=== PATIENT | female | born 1940 | race Two or more races ===

== ENCOUNTER 2025-02-08 09:23 | Inpatient (IN) | payer OTHER ==
[~2025-02-08] VITALS: Ht 152.4 cm; Wt 59.0 kg
--- NOTE | 2025-02-08 09:35 | NUR ---
SE RECIBE PTE ALERTA, ORIENTADA EN PERSONA EN AMBULANCIA. FAMILIAR REFIERE QUE VIENE DE TRANSFER DE A[place]IO M[place] POR DISLOCACION EN CADERA DERECHA. SE MIDE SV Y SE UBICA
[2025-02-08] MEDS ORDERED: CHILDREN'S ASPI81 MG (09:36)
[2025-02-08] MEDS ORDERED: AMLODIPINE-OLM1 EAC2 (09:37)
[2025-02-08] MEDS ORDERED: METFORMIN HCL500 M3 (09:37)
[2025-02-08] MEDS ORDERED: TOPROL XL25 M1 (09:37)
[2025-02-08] MEDS ORDERED: LEVOTHYROXINE50 MC1 (09:37)
[2025-02-08] MEDS ORDERED: ARBLI10 MG/1 ML (09:37)
[2025-02-08] MEDS ORDERED: 0.9 % SODIUM CHLORIDE 1,000 ML IV SCH ×2 (09:45→18:15)
[2025-02-08] MEDS ORDERED: KETOROLAC TROMETHAMINE 30 MG VIAL IU STA (10:03)
[2025-02-08] MEDS ORDERED: KETOROLAC TROMETHAMINE 30 MG VIAL ONE (10:05)
--- NOTE | 2025-02-08 10:05 | NUR ---
SE ORIENTA PTE SOBRE TX A SEGUIR, LA MISMA REFIERE ENTENDER. SE ALEX MUESTRA DE LAB Y SE ADMINISTRA MED RICHIE ORDEN MEDICA
[2025-02-08 10:10] LABS: BASO % 0.2 % (0.1-1.2); EOS # 0.04 (0.04-0.54); EOS % 0.3 % (0.7-7.0); LYMPH # 0.63 (1.18-3.74); LYMPH % 5.2 % (19.3-53.1); MEAN PLATELET VOLUME 8.40 fl (9.4-12.4); MONO # 0.47 (0.24-0.82); MONO % 3.8 % (4.7-12.5); NEUT # 10.97 (1.56-6.13); NEUT % 89.8 % (34.0-71.1); RED CELL DISTRIBUTION WIDTH 14.7 % (11.6-14.4)
[2025-02-08 10:34] LABS: BUN CREA RATIO 16.0 (7.0-25.0); CREATININE SERUM 0.55 mg/dL (0.55-1.02); GFR 104.8; GLUCOSE FASTING 133.0 mg/dL (65-100); OSMOLALITY SERUM 280.0 MOSM/KG (275-295)
[2025-02-08 10:44] LABS: INR 1.1
--- NOTE | 2025-02-08 10:44 | NUR ---
SE INSERTA KAZ MARRUFO ESTERILES
[2025-02-08 11:17] LABS: COVID-19 AG NEGATIVE (NEGATIVE)
[2025-02-08 11:35] LABS: URINE CAST 1.98 uL (0.0-1.40); URINE EPITHELIAL CELLS 27.2 uL (0.0-38.8); URINE RBC 120.4 uL (0.0-20.8)
[2025-02-08 11:42] LABS: URINE APPEARANCE Turbid; URINE BILIRRUBIN Negative (NEGATIVE); URINE BLOOD Moderate; URINE COLOR Yellow; URINE GLUCOSE Negative (NEGATIVE); URINE KETONE 15 (NEGATIVE); URINE LEUKOCYTE Large; URINE NITRATE Positive; URINE PROTEIN 30 (NEGATIVE); URINE UROBILINOGEN 1.0 E.U./dl
[2025-02-08 12:37] LABS: URINE BACTERIA > 9821.5 uL (0.0-1933); URINE WBC > 5548.3 uL (0.0-23.2)
[2025-02-08] MEDS ORDERED: CEFTRIAXONE SODIUM 1,000 MG VIAL IV SCH (18:12)
[2025-02-08] MEDS ORDERED: AZITHROMYCIN 500 MG VIAL IV SCH (18:13)
[2025-02-08] MEDS ORDERED: ENOXAPARIN SODIUM 40 MG/0.4 ML SYRINGE SUBCUTANEO SCH (18:14)
[2025-02-08] MEDS ORDERED: ACETAMINOPHEN 325 MG TABLET PO PRN (18:15)
[2025-02-08] MEDS ORDERED: TRAMADOL HCL 50 MG TABLET PO PRN (18:15)
[2025-02-08] MEDS ORDERED: AMLODIPINE BESYLATE 2.5 MG TABLET PO SCH (18:18)
[2025-02-08] MEDS ORDERED: INSULIN LISPRO 1,000 UNIT/10 ML UNITS SUBCUTANEO PRN (18:30)
[2025-02-08] MEDS ORDERED: DEXTROSE 50 % IN WATER 0.5 G/ML DISP.SYRIN IV PRN (18:30)
[2025-02-08] MEDS ORDERED: ENOXAPARIN SODIUM 40 MG/0.4 ML SYRINGE SUBCUTANEO ONE (18:55)
[2025-02-08] MEDS ORDERED: CEFTRIAXONE SODIUM 1,000 MG VIAL ONE (18:55)
[2025-02-08] MEDS ORDERED: AZITHROMYCIN 500 MG VIAL IV ONE (18:56)
[2025-02-08 18:59] LABS: ABG PH 7.420 (7.35-7.45); ABG PO2 66.3 mmHg (80-100)
[2025-02-08 19:00] LABS: BICARBONATE 25.2 mmol/l (23-25); o2 21 %
[2025-02-08] MEDS ORDERED: MORPHINE SULFATE 4 MG/ML CARTRIDGE IV PRN (19:45)
[2025-02-08 21:20] VITALS: BP 157/67; O2SAT 93
[2025-02-09 02:02] VITALS: BP 160/72; O2SAT 94
[2025-02-09] MEDS ORDERED: AZITHROMYCIN 500 MG VIAL IV ONE (06:38)
[2025-02-09] MEDS ORDERED: DEXTROSE 50 % IN WATER 0.5 G/ML VIAL IV PRN (07:15)
[2025-02-09] MEDS ORDERED: METRONIDAZOLE/SODIUM CHLORIDE 500 MG/100 ML PIGGYBACK IV SCH (09:00)
[2025-02-09] MEDS ORDERED: KETOROLAC TROMETHAMINE 60 MG VIAL IM ONE (13:14)
[2025-02-09] MEDS ORDERED: BUPIVACAINE HCL/MPF 0.5% 30ML VIAL ONE (13:14)
[2025-02-09] MEDS ORDERED: ISOPROPYL ALCOHOL 30 ML OUNCE TOP ONE (13:14)
[2025-02-09] MEDS ORDERED: METRONIDAZOLE/SODIUM CHLORIDE 500 MG/100 ML PIGGYBACK IV ONE (16:08)
[2025-02-09 16:56] VITALS: BP 157/68; O2SAT 96
[2025-02-09] MEDS ORDERED: ENALAPRILAT DIHYDRATE 1.25 MG/ML VIAL IV ONE (23:55)
[2025-02-10] MEDS ORDERED: ENALAPRILAT DIHYDRATE 2.5 MG/2 ML VIAL IV PRN (00:15)
[2025-02-10 00:47] VITALS: BP 166/73; O2SAT 100
[2025-02-10] MEDS ORDERED: AZITHROMYCIN 500 MG VIAL IV ONE (07:24)
[2025-02-10 08:00] VITALS: BP 129/67; O2SAT 95
[2025-02-10] MEDS ORDERED: ENALAPRILAT DIHYDRATE 1.25 MG/ML VIAL IV PRN (11:15)
[2025-02-10 16:00] VITALS: BP 105/59; O2SAT 95
[2025-02-11 01:12] VITALS: BP 109/63; O2SAT 95
[2025-02-11] MEDS ORDERED: AZITHROMYCIN 500 MG VIAL IV ONE (07:14)
[2025-02-11 08:00] VITALS: BP 158/77; O2SAT 98
[2025-02-11 16:00] VITALS: BP 144/74; O2SAT 95
[2025-02-11 23:59] VITALS: BP 97/55; O2SAT 98
[2025-02-12 00:01] VITALS: BP 164/65; O2SAT 98
[2025-02-12] MEDS ORDERED: AZITHROMYCIN 500 MG VIAL IV ONE (07:05)
[2025-02-12 08:03] VITALS: BP 163/70; O2SAT 98
[2025-02-12 16:00] VITALS: BP 145/73; O2SAT 99
[2025-02-13 01:00] VITALS: BP 162/72; O2SAT 99
[2025-02-13 08:00] VITALS: BP 167/84; O2SAT 94
[2025-02-13 12:26] LABS: BASO % 0.5 % (0.1-1.2); EOS # 0.09 (0.04-0.54); EOS % 1.4 % (0.7-7.0); LYMPH # 1.01 (1.18-3.74); LYMPH % 15.9 % (19.3-53.1); MEAN PLATELET VOLUME 8.30 fl (9.4-12.4); MONO # 0.37 (0.24-0.82); MONO % 5.8 % (4.7-12.5); NEUT # 4.85 (1.56-6.13); NEUT % 76.1 % (34.0-71.1); RED CELL DISTRIBUTION WIDTH 15.3 % (11.6-14.4)
[2025-02-13 12:46] LABS: ERYTHROCYTE SEDIMENTATION RATE 80 mm/hr (0-30)
[2025-02-13 13:11] LABS: ALT/SGPT 18.0 U/L (12-78); AST/SGOT 31.0 U/L (15-37); BILIRUBIN TOTAL 0.5 mg/dL (0.3-1.2); BUN CREA RATIO 11.0 (7.0-25.0); CREATININE SERUM 0.55 mg/dL (0.55-1.02); GFR 104.8; GLOBULINA 2.6 G/DL (2.4-3.5); GLUCOSE FASTING 118.0 mg/dL (65-100); OSMOLALITY SERUM 280.0 MOSM/KG (275-295)
[2025-02-13 16:00] VITALS: BP 132/85; O2SAT 97
[2025-02-14] MEDS ORDERED: KETOROLAC TROMETHAMINE 30 MG VIAL IV NR (08:00)
[2025-02-14 11:18] VITALS: BP 170/75; O2SAT 95
[2025-02-14 17:03] VITALS: BP 151/70; O2SAT 98
== END 2025-02-14 20:48 | disposition home or self-care (01) | DRG 559 ==
LOC: ER 12:46 → SURG 17:55
PROVIDERS: Emergency Medicine; General Practice; Internal Medicine Infectious Disease; Orthopaedic Surgery; ADMIT Internal Medicine; ATTEND Internal Medicine
PROC: BW24ZZZ Computerized Tomography (CT Scan) of Chest and Abdomen (ICD-10-PCS; 2025-02-08)
PROC: 0SS9XZZ Reposition Right Hip Joint, External Approach (ICD-10-PCS; principal; 2025-02-09 13:15)
DX: T84.020A Dislocation of internal right hip prosthesis, initial encounter (principal); J18.9 Pneumonia, unspecified organism; N39.0 Urinary tract infection, site not specified; R09.02 Hypoxemia; I10 Essential (primary) hypertension; E11.9 Type 2 diabetes mellitus without complications; Z79.4 Long term (current) use of insulin; E03.9 Hypothyroidism, unspecified; Y65.8 Other specified misadventures during surgical and medical care

== ENCOUNTER 2025-02-26 20:13 | Inpatient (IN) | payer OTHER ==
[~2025-02-26] VITALS: Ht 157.5 cm; Wt 61.7 kg
[~2025-02-26 20:13] MED LIST: AMLODIPINE-OLM1 EAC2; ARBLI10 MG/1 ML; CHILDREN'S ASPI81 MG; LEVOTHYROXINE50 MC1; METFORMIN HCL500 M3; TOPROL XL25 M1
--- NOTE | 2025-02-26 20:23 | NUR ---
SE RECIBE PTE ALERTA Y ORIENTADA EN AMBULANCIA LA CUAL REFIERE TRAER A PTE POR [place] RECTAL DESDE HACE 1 SEMANA. SE MIDEN S/V A PTE Y SE UBICA.
[2025-02-26] MEDS ORDERED: PANTOPRAZOLE SODIUM 40 MG in 0.9 % SODIUM CHLORIDE 8 ML IV PUSH STA (20:53)
[2025-02-26] MEDS ORDERED: 0.9 % SODIUM CHLORIDE 1,000 ML IV SCH (21:00)
--- NOTE | 2025-02-26 21:05 | NUR ---
RN DE TURNO EDUCA ACERCA DE TX ORDENADO Y REFIERE ENTENDER; SE CANALIZA Y COLECTAN MUESTRA DE LABORATORIOS MEDIANTE MEDIDAS ASEPTICAS. SE ADMINISTRAN MEDICAMENTOS RICHIE ORDEN MEDICA.
[2025-02-26 21:59] LABS: BASO % 0.3 % (0.1-1.2); EOS # 0.04 (0.04-0.54); EOS % 0.7 % (0.7-7.0); LYMPH # 0.82 (1.18-3.74); LYMPH % 14.2 % (19.3-53.1); MEAN PLATELET VOLUME 9.40 fl (9.4-12.4); MONO # 0.27 (0.24-0.82); MONO % 4.7 % (4.7-12.5); NEUT # 4.60 (1.56-6.13); NEUT % 79.9 % (34.0-71.1); RED CELL DISTRIBUTION WIDTH 17.5 % (11.6-14.4)
[2025-02-26 22:20] LABS: INR 1.03
[2025-02-26 22:25] LABS: ALT/SGPT 12.0 U/L (12-78); AST/SGOT 13.0 U/L (15-37); BILIRUBIN TOTAL 0.44 mg/dL (0.3-1.2); BUN CREA RATIO 10.0 (7.0-25.0); CREATININE SERUM 0.99 mg/dL (0.55-1.02); GFR 53.18; GLOBULINA 3.0 G/DL (2.4-3.5); GLUCOSE FASTING 141.0 mg/dL (65-100); OSMOLALITY SERUM 286.0 MOSM/KG (275-295)
[2025-02-27 04:48] LABS: BASO % 0.3 % (0.1-1.2); EOS # 0.08 (0.04-0.54); EOS % 1.3 % (0.7-7.0); LYMPH # 1.31 (1.18-3.74); LYMPH % 21.6 % (19.3-53.1); MEAN PLATELET VOLUME 9.20 fl (9.4-12.4); MONO # 0.37 (0.24-0.82); MONO % 6.1 % (4.7-12.5); NEUT # 4.28 (1.56-6.13); NEUT % 70.5 % (34.0-71.1); RED CELL DISTRIBUTION WIDTH 17.4 % (11.6-14.4)
[2025-02-27] MEDS ORDERED: ENALAPRILAT DIHYDRATE 1.25 MG/ML VIAL IV PRN (08:15)
[2025-02-27] MEDS ORDERED: HALOPERIDOL LACTATE 5 MG/ML AMPUL IM PRN (08:15)
[2025-02-27] MEDS ORDERED: ONDANSETRON HCL 2 MG/ML VIAL IV PRN (08:15)
[2025-02-27] MEDS ORDERED: MEPERIDINE HCL/PF 25 MG/ML VIAL IV PRN (08:15)
[2025-02-27 09:20] LABS: COVID-19 AG NEGATIVE (NEGATIVE)
[2025-02-27] MEDS ORDERED: PIPERACILLIN/TAZOBACTAM SODIUM 3.375 GM VIAL IV SCH (12:00)
[2025-02-27 15:46] VITALS: BP 154/60; O2SAT 100
[2025-02-27 18:24] VITALS: BP 160/72; O2SAT 96
[2025-02-28 01:00] VITALS: BP 174/81; O2SAT 94
[2025-02-28 09:05] VITALS: BP 148/70; O2SAT 97
[2025-02-28] MEDS ORDERED: PEG3350/SOD SULF,BICARB,CL/KCL 4,000 ML GALLON PO NR (15:00)
[2025-02-28 18:18] VITALS: BP 155/65; O2SAT 97
[2025-03-01 02:26] VITALS: BP 128/67; O2SAT 98
[2025-03-01 09:53] VITALS: BP 152/69; O2SAT 97
[2025-03-01] MEDS ORDERED: fentaNYL CITRATE 50 MCG/ML AMPUL IV ONE (10:45)
[2025-03-01] MEDS ORDERED: DIPHENHYDRAMINE HCL 50 MG/ML VIAL 1ML IV NR (10:45)
[2025-03-01] MEDS ORDERED: MIDAZOLAM HCL 2 MG/2 ML VIAL IV ONE (10:45)
[2025-03-01 18:19] VITALS: BP 167/77; O2SAT 100
[2025-03-02 01:08] VITALS: BP 162/74; O2SAT 99
[2025-03-02 08:00] VITALS: BP 157/73
[2025-03-02 10:34] LABS: BASO % 0.6 % (0.1-1.2); EOS # 0.10 (0.04-0.54); EOS % 1.8 % (0.7-7.0); LYMPH # 0.89 (1.18-3.74); LYMPH % 16.4 % (19.3-53.1); MEAN PLATELET VOLUME 9.50 fl (9.4-12.4); MONO # 0.41 (0.24-0.82); MONO % 7.6 % (4.7-12.5); NEUT # 3.98 (1.56-6.13); NEUT % 73.2 % (34.0-71.1); RED CELL DISTRIBUTION WIDTH 16.5 % (11.6-14.4)
[2025-03-02 18:28] VITALS: BP 160/81; O2SAT 100
[2025-03-03 01:09] VITALS: BP 150/70; O2SAT 98
[2025-03-03 08:16] LABS: BUN CREA RATIO 10.0 (7.0-25.0); CREATININE SERUM 0.67 mg/dL (0.55-1.02); GFR 83.45; GLUCOSE FASTING 67.0 mg/dL (65-100); OSMOLALITY SERUM 276.0 MOSM/KG (275-295)
[2025-03-03 08:26] VITALS: BP 153/67; O2SAT 98
[2025-03-03 09:27] LABS: BASO % 0.4 % (0.1-1.2); EOS # 0.19 (0.04-0.54); EOS % 4.2 % (0.7-7.0); LYMPH # 0.85 (1.18-3.74); LYMPH % 19.0 % (19.3-53.1); MEAN PLATELET VOLUME 9.70 fl (9.4-12.4); MONO # 0.37 (0.24-0.82); MONO % 8.3 % (4.7-12.5); NEUT # 3.04 (1.56-6.13); NEUT % 67.9 % (34.0-71.1); RED CELL DISTRIBUTION WIDTH 16.3 % (11.6-14.4)
[2025-03-03] MEDS ORDERED: POTASSIUM CHLORIDE 20MEQ/100ML H2O PB IV NR (12:05)
[2025-03-03 18:36] VITALS: BP 160/67; O2SAT 96
[2025-03-04] MEDS ORDERED: ACETAMINOPHEN 500 MG GEL..CAP PO PRN (01:00)
[2025-03-04 01:06] VITALS: BP 170/80; O2SAT 94
[2025-03-04 03:58] VITALS: BP 113/63; BP 147/72; O2SAT 98
[2025-03-04] MEDS ORDERED: POTASSIUM CHLORIDE 10 MEQ CAPSULE PO NR (11:05)
[2025-03-04 11:20] VITALS: BP 150/71; O2SAT 95
== END 2025-03-04 13:56 | disposition home or self-care (01) | DRG 375 ==
LOC: ER 20:13 → MEDJ 02-27 08:41
PROVIDERS: General Practice; Internal Medicine; Surgery; ADMIT Internal Medicine; ATTEND Internal Medicine
PROC: BW21YZZ Computerized Tomography (CT Scan) of Abdomen and Pelvis using Other Contrast (ICD-10-PCS; 2025-02-26)
PROC: 0DBP8ZX Excision of Rectum, Via Natural or Artificial Opening Endoscopic, Diagnostic (ICD-10-PCS; principal; 2025-03-01)
PROC: 0W3P8ZZ Control Bleeding in Gastrointestinal Tract, Via Natural or Artificial Opening Endoscopic (ICD-10-PCS; 2025-03-01)
DX: C20 Malignant neoplasm of rectum (principal); K62.5 Hemorrhage of anus and rectum; K57.30 Diverticulosis of large intestine without perforation or abscess without bleeding; D64.89 Other specified anemias; I10 Essential (primary) hypertension; E03.9 Hypothyroidism, unspecified; E78.5 Hyperlipidemia, unspecified; E11.9 Type 2 diabetes mellitus without complications; Z79.84 Long term (current) use of oral hypoglycemic drugs

== ENCOUNTER 2025-04-19 08:00 | Day surgery (SDC) | payer OTHER ==
[2025-04-13 10:10] VITALS: BP 144/82
[2025-04-13 10:42] LABS: BASO % 0.4 % (0.1-1.2); EOS # 0.08 (0.04-0.54); EOS % 1.4 % (0.7-7.0); LYMPH # 1.15 (1.18-3.74); LYMPH % 20.5 % (19.3-53.1); MEAN PLATELET VOLUME 9.60 fl (9.4-12.4); MONO # 0.29 (0.24-0.82); MONO % 5.2 % (4.7-12.5); NEUT # 4.07 (1.56-6.13); NEUT % 72.3 % (34.0-71.1); RED CELL DISTRIBUTION WIDTH 14.9 % (11.6-14.4)
[2025-04-13 11:23] LABS: ALT/SGPT 10.0 U/L (12-78); AST/SGOT 15.0 U/L (15-37); BILIRUBIN TOTAL 0.58 mg/dL (0.3-1.2); BUN CREA RATIO 17.0 (7.0-25.0); CREATININE SERUM 0.65 mg/dL (0.55-1.02); GFR 86.42; GLOBULINA 3.3 G/DL (2.4-3.5); GLUCOSE FASTING 107.0 mg/dL (65-100); OSMOLALITY SERUM 281.0 MOSM/KG (275-295)
[2025-04-13 13:32] LABS: INR 1.02
[~2025-04-19] VITALS: Ht 157.5 cm; Wt 61.2 kg
[~2025-04-19 08:00] MED LIST changes: +ANTIVERT25 M2 PO
[2025-04-19] MEDS ORDERED: CEFAZOLIN SODIUM 1,000 MG VIAL ONE ×2 (09:47→12:12)
[2025-04-19] MEDS ORDERED: HEPARIN SODIUM,PORCINE/PF 100 UNIT/ML SYRINGE IV ONE (11:58)
[2025-04-19] MEDS ORDERED: EPINEPHRINE HCL/PF 1 MG/ML AMPUL ONE (11:58)
[2025-04-19] MEDS ORDERED: BUPIVACAINE HCL/Mpf 0.5% 10ML VIAL ONE (12:06)
[2025-04-19] MEDS ORDERED: LIDOCAINE HCL 1%/EPINEPHRINE 20ML VIAL IJ ONE (12:06)
[2025-04-19] MEDS ORDERED: TRAM1TAB98 PO (13:27)
== END 2025-04-19 16:16 | disposition home or self-care (01) ==
LOC: CIR.AMB 08:00
PROVIDERS: ATTEND Surgery
DX: C20 Malignant neoplasm of rectum (principal)
CPT/HCPCS: 36561; C1751